=== PATIENT | female | born 1930 | race Caucasian/White ===

== ENCOUNTER 2017-07-29 02:51 | Emergency (ER) | payer OTHER ==
[~2017-07-29] VITALS: Ht 165.1 cm; Wt 65.8 kg
[~2017-07-29 02:51] MED LIST: ALPR0.254 PO; ATEN-60 PO; ATOR40TA52 PO; CILO50TA; CITA-77 PO; HYDR12.527 PO; LISIPOW PO
[2017-07-29 02:59] VITALS: BP 141/74
== END 2017-07-29 04:28 | disposition left against medical advice (07) ==
LOC: EDBD 02:51 → ER 02:56
DX: R04.0 Epistaxis (principal); Z53.21 Procedure and treatment not carried out due to patient leaving prior to being seen by health care provider
CPT/HCPCS: 93005

== ENCOUNTER → 2017-08-21 | Day surgery (SDC) | payer OTHER ==
[~2017-08-21] VITALS: Ht 152.4 cm; Wt 59.1 kg
[~2017-08-21] MED LIST changes: +EPINEPHrine HCL 1 MG/1 ML AMP ONE; +EPINEPHrine HCL 1 MG/10 ML SYRG ONE; +HEPARIN SODIUM (PORCINE) 5000 UNITS/ML 1ML VIAL IV ONE; +HEPARIN SODIUM (PORCINE) 5000 UNITS/ML 1ML VIAL ONE; +IODIXANOL 320MG/ML 100ML BTL IV ONE; +LIDOCAINE 1% HCL (LOCAL ANESTH.) INJ 20ML MDV ONE; +MIDAZOLAM DRIP 50 mg/50mL 50 ML IV ONE; +MIDAZOLAM DRIP 50 mg/50mL 50 ML IV SCH; +PHENYLEPHRINE INJ 20 MG in D5W 5% 248 ML IV ONE; +SODIUM BICARBONATE 8.4 % INJ 50ML VIAL IV ONE; +SODIUM BICARBONATE 8.4% INJ 50ML SYRINGE IV ONE; +SODIUM BICARBONATE 8.4% INJ 50ML SYRINGE ONE
[2017-08-21 14:30] VITALS: BP 64/45
[2017-08-21 15:21] LABS: Hematocrit 39.1 % (36.0-46.0); Hemoglobin 12.2 g/dL (12.2-16.2); Mean Corpuscular Hemoglobin 30.4 pg (28.0-32.0); Mean Corpuscular Hgb Conc. 31.2 g/dL (32.0-36.0); Mean Corpuscular Volume 97.7 fL (80.0-100.0); Platelet Count (auto) 135 10^3/uL (140-450); Red Cell Distribution Width 16.2 % (11.8-14.3); White Blood Cell 17.5 10^3/uL (4.4-10.8)
[2017-08-21 15:31] LABS: Basophils % (manual) 0 (0.0-2.0); Blast Cells 0; Eosinophils % (manual) 0 (0-7); Metamyelocytes % 0; Myelocytes % 0; Promyelocytes % 0; Reactive Lymphocytes 0
[2017-08-21 15:57] LABS: INR 1.51 (0.9-1.15)
[2017-08-21 16:02] LABS: Albumin 2.5 g/dL (3.4-5.0); BUN/Creatinine Ratio 11.1; Bilirubin, Total 1.8 mg/dL (0.2-1.0); Calcium 9.5 mg/dL (8.5-10.1); Total Protein 4.9 g/dL (6.4-8.2)
[2017-08-21 16:08] LABS: Potassium 2.9 mmol/L (3.5-5.1)
[2017-08-21 16:33] LABS: Partial Thromboplastin Time > 170.00 sec (22.64-33.71)
[2017-08-21 17:05] LABS: Band Neutrophils % (manual) 7; Lymphocytes % (manual) 34 (10.0-50.0); Monocytes % (manual) 5 (0-12)
== END | disposition home or self-care (01) ==
LOC: EDUNIT# 13:59 → ER 14:14 → EDBD 14:14 → EDSEX 14:14 → CATH 15:30
PROVIDERS: ATTEND Specialist
DX: I21.3 ST elevation (STEMI) myocardial infarction of unspecified site (principal); Z53.8 Procedure and treatment not carried out for other reasons; I48.91 Unspecified atrial fibrillation; I46.9 Cardiac arrest, cause unspecified; J96.20 Acute and chronic respiratory failure, unspecified whether with hypoxia or hypercapnia; Z88.4 Allergy status to anesthetic agent; E66.9 Obesity, unspecified; Z88.6 Allergy status to analgesic agent; F32.9 Major depressive disorder, single episode, unspecified
CPT/HCPCS: 36415; 71045; 80053; 84484; 85007; 85027; 85610; 85730; 93005; 94002; C1769; C1894; J0171; J1644; J2001; J2250; J2370; Q9967; 31500; 36556; 92950; 94761; 99291; J7060